=== PATIENT | female | born 1995 | race Caucasian/White ===

== ENCOUNTER 2017-03-19 14:25 | Emergency (ER) | payer OTHER ==
[2017-03-19 14:37] VITALS: BP 122/71; PULSE 86; RESP 16; TEMP 98.2
--- NOTE | 2017-03-19 15:00 | ED ---
General Adult HPI - General Chief complaint: Skin/Abscess/Foreign Body Stated complaint: Sunburn Lips Time Seen by Provider: 03/19/17 14:48 Source: patient, RN notes reviewed Mode of arrival: ambulatory Limitations: no limitations - History of Present Illness Initial comments: Patient 22-year-old female who presents emergency room today with chief complaint of increased swelling over the last few days. Does admit that she "Float down"4 days ago. He states that since she does feel that her lips get swollen she has source. States had similar problem in the past. Denies any other complaints. Patient denies any recent fever, chills, shortness of breath, chest pain, back pain, abdominal pain, nausea or vomiting, numbness or tingling , dysuria or hematuria, constipation or diarrhea, headaches or visual changes, or any other complaints. - Related Data Previous Rx's Medication Instructions Recorded valACYclovir HCL [Valtrex] 1,000 mg PO Q12HR #14 tab 03/19/17 Allergies Allergy/AdvReac Type Severity Reaction Status Date / Time No Known Allergies Allergy Verified 03/19/17 14:37 Review of Systems ROS Statement: Those systems with pertinent positive or pertinent negative responses have been documented in the HPI. ROS Other: All systems not noted in ROS Statement are negative. Past Medical History Past Medical History: No Reported History History of Any Multi-Drug Resistant Organisms: None Reported Past Surgical History: No Surgical Hx Reported Past Psychological History: No Psychological Hx Reported Smoking Status: Never smoker Past Alcohol Use History: Occasional Past Drug Use History: None Reported General Exam - General Exam Comments Initial Comments: General: The patient is awake and alert, in no distress, and does not appear acutely ill. Eye: Pupils are equal, round and reactive to light, extra-ocular movements are intact. No nystagmus. There is normal conjunctiva bilaterally. No signs of icterus. Ears, nose, mouth and throat: There are moist mucous membranes and no oral lesions. Increased swelling lesions to the upper and lower lip. Neck: The neck is supple, there is no tenderness or JVD. Cardiovascular: There is a regular rate and rhythm. No murmur, rub or gallop is appreciated. Respiratory: Lungs are clear to auscultation, respirations are non-labored, breath sounds are equal. No wheezes, stridor, rales, or rhonchi. Musculoskeletal: Normal ROM, no tenderness. Strength 5/5. Sensation intact. Pulses equal bilaterally 2+. Neurological: A&O x 3. CN II-XII intact, There are no obvious motor or sensory deficits. Coordination appears grossly intact. Speech is normal. Skin: Skin is warm and dry and no rashes or lesions are noted. Psychiatric: Cooperative, appropriate mood & affect, normal judgment. Limitations: no limitations Course Vital Signs 03/19/17 14:27 Temperature 98.2 F Pulse Rate 86 Respiratory 16 Rate Blood Pressure 122/71 O2 Sat by Pulse 98 Oximetry Medical Decision Making - Medical Decision Making Patient will be Treated with Valtrex. Disposition Clinical Impression: Lip swelling Disposition: HOME SELF-CARE Condition: Good Instructions: Canker Sores (ED) Additional Instructions: Please use medication as discussed. Please follow-up with family doctor in the next 2 days of symptoms have not improved. Please return to emergency room if the symptoms increase or worsen or for any other concerns. Prescriptions: valACYclovir HCL [Valtrex] 1,000 mg PO Q12HR #14 tab Referrals: Chet Catalan MD [Primary Care Provider] - 1-2 days Time of Disposition: 15:01
== END 2017-03-19 15:08 | disposition home or self-care (01) ==
LOC: EC 14:25
DX: R22.0 Localized swelling, mass and lump, head (principal); L55.9 Sunburn, unspecified
CPT/HCPCS: 99282

== ENCOUNTER 2020-08-01 16:43 | Emergency (ER) | payer OTHER ==
[2020-08-01 16:47] VITALS: BP 149/85; PULSE 79; RESP 16; TEMP 97.9
[2020-08-01] MEDS ORDERED: AMOXIC-POT CLAV 875MG STARTER PACK 2 TAB BTL PO STA (17:00)
--- NOTE | 2020-08-01 17:02 | ED ---
ENT HPI - General Chief complaint: Dental/Oral Stated complaint: mouth pain Time Seen by Provider: 08/01/20 16:47 Source: patient Mode of arrival: ambulatory Limitations: no limitations - History of Present Illness Initial comments: 25yo female presenting for cc of left lower dental pain. pt states her left lower tooth has been bugging her for the past 1-2 days. pt states that she woke up this morning with mild lower jaw swelling. denies swelling below tongue of neck. denies difficulty breathing, swallowing or tolerating oral secretion. denies fevers. patient appears well nontoxic in no acute distress on arrival. - Related Data Previous Rx's Medication Instructions Recorded valACYclovir HCL [Valtrex] 1,000 mg PO Q12HR #14 tab 03/19/17 Amoxic-Pot Clav 875-125Mg 1 tab PO Q12HR 7 Days #14 tab 08/01/20 [Augmentin 875-125] Allergies Allergy/AdvReac Type Severity Reaction Status Date / Time No Known Allergies Allergy Verified 08/01/20 16:46 Review of Systems ROS Statement: Those systems with pertinent positive or pertinent negative responses have been documented in the HPI. ROS Other: All systems not noted in ROS Statement are negative. Past Medical History Past Medical History: Asthma History of Any Multi-Drug Resistant Organisms: None Reported Past Surgical History: Adenoidectomy, Tonsillectomy Past Psychological History: Anxiety Smoking Status: Never smoker Past Alcohol Use History: Occasional Past Drug Use History: None Reported General Exam - General Exam Comments Initial Comments: General: The patient is awake and alert, in no distress, and does not appear acutely ill. Eye: Pupils are equal, round and reactive to light, extra-ocular movements are intact. No nystagmus. There is normal conjunctiva bilaterally. No signs of icterus. Ears, nose, mouth and throat: There are moist mucous membranes and no oral lesions. tenderness to percussion of tooth #21. no obvious gingival abscess no swelling below the tongue below the angle of mandible. No tripoding no drooling tolerate oral secretions without difficulty very mild left lower facial swelling Neck: The neck is supple, there is no tenderness or JVD. Cardiovascular: There is a regular rate and rhythm. No murmur, rub or gallop is appreciated. Respiratory: Lungs are clear to auscultation, respirations are non-labored, breath sounds are equal. No wheezes, stridor, rales, or rhonchi. Musculoskeletal: Normal ROM, no tenderness. Strength 5/5. Sensation intact. Pulses equal bilaterally 2+. Neurological: A&O x 3. CN II-XII intact, There are no obvious motor or sensory deficits. Coordination appears grossly intact. Speech is normal. Skin: Skin is warm and dry and no rashes or lesions are noted. Psychiatric: Cooperative, appropriate mood & affect, normal judgment. Limitations: no limitations Course Vital Signs 08/01/20 16:44 Temperature 97.9 F Pulse Rate 79 Respiratory 16 Rate Blood Pressure 149/85 O2 Sat by Pulse 99 Oximetry Medical Decision Making - Medical Decision Making dental pain. pain to percussion no obvious gingival abscess. pt will be placed on antibiotics and is to f/u with dentist. Findings a physical examination concerning for Diaz's angina or systemic spread of infection. Patient discharged appearing well and nontoxic a critical care plan return parameters and importance of adherence stated above regimen/ denies . Disposition Clinical Impression: Pain, dental Disposition: HOME SELF-CARE Condition: Good Instructions (If sedation given, give patient instructions): Dental Abscess (ED) Additional Instructions: Please use medication as discussed. Please follow-up with dentist in the next week. Please return to emergency room if the symptoms increase or worsen or for any other concerns. Prescriptions: Amoxic-Pot Clav 875-125Mg [Augmentin 875-125] 1 tab PO Q12HR 7 Days #14 tab Is patient prescribed a controlled substance at d/c from ED?: No Referrals: None,Stated [Primary Care Provider] - 1-2 days Time of Disposition: 17:02
== END 2020-08-01 17:06 | disposition home or self-care (01) ==
LOC: EC 16:43
DX: K08.89 Other specified disorders of teeth and supporting structures (principal)
CPT/HCPCS: 99282

== ENCOUNTER 2020-08-05 14:07 | Emergency (ER) | payer OTHER ==
[2020-08-05 14:14] VITALS: BP 136/89; PULSE 85; RESP 20; TEMP 98.5
[2020-08-05] MEDS ORDERED: ACET/COD 300 MG/30 MG STARTER PACK 6 TAB BTL PO STA (14:25)
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
== END 2020-08-05 14:40 | disposition home or self-care (01) ==
LOC: EC 14:07
DX: K04.7 Periapical abscess without sinus (principal); S02.5XXA Fracture of tooth (traumatic), initial encounter for closed fracture; X58.XXXA Exposure to other specified factors, initial encounter
CPT/HCPCS: 99282

== ENCOUNTER 2020-08-30 08:04 | Emergency (ER) | payer OTHER ==
[2020-08-30 08:11] VITALS: BP 147/97; PULSE 89; RESP 16; TEMP 98
[2020-08-30] MEDS ORDERED: HYDROmorphone 0.5 MG/0.5 ML SYRINGE IM STA (08:13)
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
== END 2020-08-30 09:32 | disposition home or self-care (01) ==
LOC: EC 08:04
DX: M25.461 Effusion, right knee (principal); M25.561 Pain in right knee; V43.52XA Car driver injured in collision with other type car in traffic accident, initial encounter; Y92.410 Unspecified street and highway as the place of occurrence of the external cause
CPT/HCPCS: 96372; 99284

== ENCOUNTER 2021-11-19 21:29 | Emergency (ER) | payer OTHER ==
[2021-11-19 23:14] LABS: Amorphous Sediment,Urine Rare /hpf; Appearance,Urine Cloudy (Clear); Bacteria,Urine Moderate /hpf; Bilirubin,Urine Negative (Negative); Blood,Urine Small (Negative); Color,Urine Yellow; Glucose,Urine (UA) Negative (Negative); Ketones,Urine Trace (Negative); Leukocyte Esterase,Urine Large (Negative); Mucus,Urine Many /hpf; Nitrite,Urine Positive (Negative); Protein,Urine 1+ (Negative); RBC,Urine 15 /hpf (0-5); Specific Gravity,Urine 1.017 (1.001-1.035); Squamous Epithelial Cell,Urine 6 /hpf (0-4); WBC,Urine 166 /hpf (0-5)
[2021-11-20] MEDS ORDERED: ACETAMINOPHEN TAB 500 MG TAB PO STA (00:14)
[2021-11-20] MEDS ORDERED: CEPHALEXIN 500 MG CAP PO STA (01:31)
--- NOTE | 2021-11-20 01:40 | ED ---
General Adult HPI - General Chief complaint: Weakness Stated complaint: Body aches, Chills, Shortness of breath Time Seen by Provider: 11/20/21 00:14 Source: family, RN notes reviewed Mode of arrival: ambulatory Limitations: no limitations - History of Present Illness Initial comments: 18-year-old female presents to the emergency department for evaluation of fever and bodyaches. States she had 2 previously negative Covid tests, but has known close contact exposure. States symptoms began 4 days ago. Reports decreased appetite, dry cough, and mild headache. Does complain of urinary frequency and mild left-sided low back pain. Denies dizziness, chest pain, shortness of breath, difficulty breathing, abdominal pain, nausea, vomiting, diarrhea, or hematuria. - Related Data Previous Rx's Medication Instructions Recorded valACYclovir HCL [Valtrex] 1,000 mg PO Q12HR #14 tab 03/19/17 Amoxic-Pot Clav 875-125Mg 1 tab PO Q12HR 7 Days #14 tab 08/01/20 [Augmentin 875-125] Clindamycin HCl 300 mg PO Q6HR #40 cap 08/05/20 Ibuprofen [Motrin] 600 mg PO Q8HR PRN #20 tab 08/05/20 Ibuprofen [Motrin] 800 mg PO Q8H #60 tab 08/30/20 Cephalexin [Keflex] 500 mg PO BID 5 Days #10 cap 11/20/21 Allergies Allergy/AdvReac Type Severity Reaction Status Date / Time No Known Allergies Allergy Verified 11/19/21 22:45 Review of Systems ROS Statement: Those systems with pertinent positive or pertinent negative responses have been documented in the HPI. ROS Other: All systems not noted in ROS Statement are negative. Past Medical History Past Medical History: Asthma History of Any Multi-Drug Resistant Organisms: None Reported Past Surgical History: Adenoidectomy, Tonsillectomy Past Psychological History: Anxiety Smoking Status: Never smoker Past Alcohol Use History: Occasional Past Drug Use History: None Reported General Exam Limitations: no limitations (Well-developed, well-nourished female in no acute distress. Initial temperature was 1.5, pulse 112, respirations 20, blood pressure 132/78, pulse ox 100% on room air.) General appearance: alert, in no apparent distress Eye exam: Present: normal appearance. Absent: scleral icterus, conjunctival injection, periorbital swelling ENT exam: Present: normal exam, normal oropharynx, mucous membranes moist, TM's normal bilaterally Neck exam: Present: normal inspection. Absent: tenderness, meningismus, lymphadenopathy Respiratory exam: Present: normal lung sounds bilaterally. Absent: respiratory distress, wheezes, rales, rhonchi, stridor, chest wall tenderness Cardiovascular Exam: Present: normal rhythm, tachycardia, normal heart sounds. Absent: systolic murmur, diastolic murmur, rubs, gallop, clicks GI/Abdominal exam: Present: soft, normal bowel sounds. Absent: distended, tenderness, guarding, rebound, rigid Back exam: Absent: CVA tenderness (R), CVA tenderness (L) Neurological exam: Present: alert, oriented X3, CN II-XII intact Psychiatric exam: Present: normal affect, normal mood Skin exam: Present: warm, dry, intact, normal color. Absent: rash Course Vital Signs 11/19/21 11/20/21 22:38 02:00 Temperature 101.5 F H 99.4 F Pulse Rate 112 H 87 Respiratory 20 16 Rate Blood Pressure 132/78 118/70 O2 Sat by Pulse 100 100 Oximetry Medical Decision Making - Medical Decision Making 26-year-old female in no significant past medical history presents to the emergency department for evaluation of fever and chills. Upon exam, patient is well-nourished in no acute distress. She is febrile and mildly tachycardic. She is not hypoxic. Known close contact Covid exposure. Laboratory studies were reviewed. Patient is positive for Covid. She also has a urinary tract infection positive for nitrates. Patient was given Tylenol for fever with improvement. UTI will be treated with Keflex and first dose given in the emergency department. She is advised to remain home from work and school until she has been fever free for 24 hours without medication. Instructed to follow up with PCP for recheck if needed. Return parameters discussed in detail. Patient verbalizes understanding and agrees with this plan. Attending: Dayne. - Lab Data Lab Results 11/19/21 11/19/21 Range/Units 22:46 22:46 Urine Color Yellow Urine Appearance Cloudy H (Clear) Urine pH 6.0 (5.0-8.0) Ur Specific [place] 1.017 (1.001-1.035) Urine Protein 1+ H (Negative) Urine Glucose (UA) Negative (Negative) Urine Ketones Trace H (Negative) Urine Blood Small H (Negative) Urine Nitrite Positive H (Negative) Urine Bilirubin Negative (Negative) Urine Urobilinogen 4.0 (<2.0) mg/dL Ur Leukocyte Esterase Large H (Negative) Urine RBC 15 H (0-5) /hpf Urine WBC 166 H (0-5) /hpf Ur Squamous Epith Cells 6 H (0-4) /hpf Amorphous Sediment Rare H (None) /hpf Urine Bacteria Moderate H (None) /hpf Urine Mucus Many H (None) /hpf Influenza Type A (PCR) Not Detected (Not Detectd) Influenza Type B (PCR) Not Detected (Not Detectd) RSV (PCR) Not Detected (Not Detectd) SARS-CoV-2 (PCR) Detected A (Not Detectd) Disposition Clinical Impression: UTI (urinary tract infection), COVID-19 Disposition: HOME SELF-CARE Condition: Stable Instructions (If sedation given, give patient instructions): Urinary Tract Infection in Women (ED), COVID-19 (Coronavirus Disease 2019) (ED) Additional Instructions: Increase fluids and rest. Alternate Tylenol and Motrin as needed for fever control. Take antibiotic as directed. Remain home from work and school until you have been fever free for 24 hours without medication. Follow up with her PCP for a recheck if needed. Return to the emergency department with any new, worsening, or concerning symptoms. Prescriptions: Cephalexin [Keflex] 500 mg PO BID 5 Days #10 cap Is patient prescribed a controlled substance at d/c from ED?: No Referrals: None,Stated [Primary Care Provider] - 1-2 days Time of Disposition: 01:40
[2021-11-20 02:01] VITALS: BP 118/70; PULSE 87; RESP 16; TEMP 99.4
== END 2021-11-20 02:00 | disposition home or self-care (01) ==
LOC: EC 21:29
DX: U07.1 COVID-19 (principal); J45.909 Unspecified asthma, uncomplicated
CPT/HCPCS: 81001; 87086; 87636; 99284